=== PATIENT | male | born 1970 | race Caucasian/White ===

== ENCOUNTER → 2020-02-22 16:24 | Outpatient (BNVA) | payer OTHER, SELFPAY | PROVIDERS: Family Provider Nurse Practitioner; PCP Nurse Practitioner; Visit Provider Nurse Practitioner | DX: I10 Essential (primary) hypertension (principal) | CPT/HCPCS: 80053; 80061 ==

== ENCOUNTER → 2020-09-11 09:03 | Outpatient (BNVA) | payer SELFPAY | PROVIDERS: Family Provider Nurse Practitioner; PCP Nurse Practitioner; Visit Provider Nurse Practitioner Family | DX: M25.551 Pain in right hip (principal); M79.651 Pain in right thigh; I10 Essential (primary) hypertension; M79.602 Pain in left arm; R03.0 Elevated blood-pressure reading, without diagnosis of hypertension; R20.2 Paresthesia of skin; E55.9 Vitamin D deficiency, unspecified; M16.11 Unilateral primary osteoarthritis, right hip | CPT/HCPCS: 73502; 80053; 80061; 82306; 84443; 84484; 85025 ==

== ENCOUNTER 2020-10-23 08:08 | Outpatient (CLI) | payer BC, SELFPAY ==
--- NOTE | 2020-10-23 08:24 | ECG_ITS ---
[facility] Test Date: 2020-10-23 Pat Name: Surinder Escalante Department: Room: Gender: Male Mailroom Assistant: Carey Lynn : 1970 Requested By: Lillie West Order Number: [id number] Randi MD: Lillie West M.D. Interpretive Statements NAME OF STUDY: EXERCISE SESTAMIBI STRESS TEST INDICATION: Chest Pain PROCEDURE: The baseline electrocardiogram showed normal sinus rhythm with normal ST-Ts right bundle branch block pattern. At the baseline, the patient's blood pressure was 148/94 mm Hg with a heart rate of 85. The patient exercised for 5 minutes and 40 seconds on a standard Carmelo protocol. Patient attained a maximum heart rate of 149 beats per minute(89% of the maximum predicted heart rate) with a blood pressure at the peak exercise of 225/83 mm Hg. The EKG at the peak exercise revealed no significant changes mainly was complaining of shortness of breath. Patient did not have any chest pain or any significant arrhythmis with the exercise Sestamibi was injected 1 minute prior to the peak exercise During the recovery phase, there were no new changes. Blood pressure at the end of the recovery phase was 165/86 mm Hg with a heart rate of 81 per minute. CONCLUSION: 1. No significant EKG changes with the [treadmill exercise 2. No exercise-induced chest pain or cardiac arrhythmia 3. Impaired exercise tolerance, attained a maximum of 7.0 METs. Hypertensive response to exercise 4. Sestamibi/Sestamibi perfusion results pending; see separate report. Electronically Signed On 10-30-2020 20:07:00 TRAINING DEVELOPMENT SPECIALIST by Lillie West M.D. [id number]
--- NOTE | 2020-10-23 08:25 | NMCV_ITS ---
NM melissa perf SPECT r/s* [id number] Surinder Escalante Age: 50 Gender: M : 1970 Exam Date: 10/23/2020 08:25 Ordering Phys: Lillie West MD ([email or web address]) Technologist: KAYA Bergeron Exam Location: [facility] Indications: CHEST PAIN STRESS TEST Please see separate stress test report in [facility] for full findings IMAGE PROTOCOL Rest/Stress 1 Exercise Day Radiopharmaceutical Dose (mCi) Administration Site Administered by Rest: Tc-99m 11.0 IV KAYA Miller Sestamibi Stress:Tc-99m 33.0 IV KAYA Miller Sestamibi Rest: 23-Oct-2020 60 Discovery 630 Stress: 23-Oct-2020 15 Discovery 630 Radiopharmaceutical was injected at 85 % maximum heart rate. Images obtained in supine and prone position. SPECT RESULTS Technical Quality: Excellent Raw Data Analysis: Normal Image Corrections: No attenuation or motion correction applied Summed Stress Score: 1 Summed Rest Score: 0 Summed Difference Score: 1 PERFUSION FINDINGS He has small area of decreased tracer uptake was noted in the mid and apical inferior wall region. Subtle area of reversibility was noted in the apical region. A subtle area of decreased tracer uptake was noted in the mid anteroseptal region, with some reversibility. With a polar plot no ischemia was noted in the anteroseptal region FUNCTIONAL RESULTS (calculated via Gated SPECT) Stress Image LV EF (%): 72 Stress EDV (mL):115 TID: 0.85 Stress ESV (mL):32 FUNCTIONAL FINDINGS: Segmental wall motion analysis revealing no gross wall motion abnormalities IMPRESSIONS 1. Myocardial perfusion imaging revealing a very small area of reversible defect in the apical inferior and mid anteroseptal regions, suggestive of ischemia in the distribution of the right coronary artery and left anterior descending artery. 2. Normal LV ejection fraction 72%. 3. LV wall motion analysis revealing no gross wall motion normalities. 4. Normal LV volume. In view of the inconsistencies, the reliability of the anteroseptal ischemia is questionable. No similar previous studies are available for comparison; clinical correlation is recommended Dr Lillie West MD [facility] (Electronically Signed) Final Date: 28 October 2020 09:13 S
[2020-10-23 08:27] VITALS: BMI 45.9
--- NOTE | 2020-10-23 09:30 | USCV_ITS ---
Surinder Escalante Age: 50 Gender: M : 1970 Exam Date: 10/23/2020 08:38 Ordering Phys: Lillie West MD ([email or web address]) Technologist: Magalis Jean-Baptiste [place] [facility] [place]: CHEST PAIN BP: 126 / 78 HR: 76 Rhythm: Sinus Technical Quality: Adequate MEASUREMENTS (Male / Female) Normal Values 2D ECHO LV Diastolic Diameter PLAX 4.2 cm 4.2 - 5.9 / 3.9 - 5.3 cm LV Systolic Diameter PLAX 2.9 cm LV Chamber Size 3.9 cm IVS Diastolic Thickness 1.2 cm 0.6 - 1.0 / 0.6 - 0.9 cm IVS Systolic Thickness 1.7 cm LVPW Diastolic Thickness 1.5 cm 0.6 - 1.0 / 0.6 - 0.9 cm LVPW Systolic Thickness 1.8 cm RV Chamber Size 2.9 cm LVOT Diameter 2.0 cm LV Ejection Fraction 2D Teich 57.8 % LV Ejection Fraction MOD 2C 51.4 % LV Ejection Fraction 2C AL 52.9 % LA Diameter 3.9 cm LA Width 2.9 cm LA Height 4.0 cm RA Width 3.0 cm RA Height 4.0 cm Aorta at Sinotubular Diameter 3.1 cm M-MODE LV Diastolic Diameter MM 4.2 cm 4.2 - 5.9 / 3.9 - 5.3 cm LV Systolic Diameter MM 2.4 cm LV Ejection Fraction MM Teich 75.9 % IVS Diastolic Thickness MM 1.3 cm 0.6 - 1.0 / 0.6 - 0.9 cm IVS Systolic Thickness MM 1.7 cm LVPW Diastolic Thickness MM 1.2 cm 0.6 - 1.0 / 0.6 - 0.9 cm LVPW Systolic Thickness MM 1.7 cm Aortic Annulus Diameter 3.5 cm LA Ao Ratio MM 1.3 MV E Point Septal Separation 0.5 cm DOPPLER AV Peak Velocity 124.0 cm/s LVOT Peak Velocity 102.0 cm/s AV Area Cont Eq vti 3.7 cm squared AV Area Cont Eq pk 2.6 cm squared MV Area PHT 5.0 cm squared Mitral E to A Ratio 1.8 MV E' Velocity 49.0 cm/s Mitral E to MV E' Ratio 7.5 Mitral E to LV E' Lateral Ratio 8.2 Mitral E to LV E' Septal Ratio 7.1 TR Peak Velocity 222.0 cm/s TR Peak Gradient 19.7 mmHg TV Peak E Velocity 78.0 cm/s Right Atrial Pressure 3.0 mmHg Pulmonary Artery Systolic Pressu 22.7 mmHg PV Peak Velocity 68.0 cm/s RV Acceleration Time 0.1 s RV Ejection Time 0.3 s RV AcT/ET 0.5 FINDINGS Left Ventricle Normal left ventricular size and systolic function, EF 55 %. No regional wall motion abnormalities. Right Ventricle Normal right ventricular size and systolic function. Right Atrium The right atrium is normal in size. Left Atrium The left atrium is normal in size. Mitral Valve No gross abnormalities noted.mild mitral annular calcification. Aortic Valve No gross abnormalities noted Tricuspid Valve No gross abnormalities noted Pulmonic Valve Pulmonic valve not well visualized. Pericardium Trivial pericardial effusion. Aorta Normal ascending aorta dimension. CONCLUSIONS Normal left ventricular size and systolic function, EF 55 %. No regional wall motion abnormalities. Mild mitral annular calcification. No significant stenotic or regurgitant lesions. Trivial pericardial effusion. There are no intracardiac masses. No previous study is available for comparison. Dr Lillie West MD [facility] (Electronically Signed) Final Date: 28 October 2020 09:34 S
[2020-10-23 09:58] VITALS: PULSE 98
== END 2020-10-23 08:09 | disposition home or self-care (01) ==
LOC: CDL 08:09
PROVIDERS: PCP Nurse Practitioner; Visit Provider Internal Medicine Cardiovascular Disease
DX: R07.89 Other chest pain (principal); R06.02 Shortness of breath
CPT/HCPCS: 78452; 93017; 93306; A9500

== ENCOUNTER → 2021-02-04 16:28 | Outpatient (BNVA) | payer BC, SELFPAY | PROVIDERS: PCP Nurse Practitioner; Visit Provider Nurse Practitioner Family | DX: L02.419 Cutaneous abscess of limb, unspecified (principal) | CPT/HCPCS: 87070; 87077; 87184; 87205 ==

== ENCOUNTER → 2021-04-02 16:31 | Outpatient (BNVA) | payer BC, SELFPAY | PROVIDERS: PCP Nurse Practitioner; Visit Provider Nurse Practitioner | DX: I10 Essential (primary) hypertension (principal); E55.9 Vitamin D deficiency, unspecified; Z12.5 Encounter for screening for malignant neoplasm of prostate; R73.9 Hyperglycemia, unspecified | CPT/HCPCS: 80053; 80061; 81000; 82306; 83036; G0103 ==

== ENCOUNTER → 2021-10-31 08:23 | Outpatient (BNVA) | payer OTHER, SELFPAY | PROVIDERS: PCP Nurse Practitioner; Visit Provider Nurse Practitioner | DX: I10 Essential (primary) hypertension (principal) | CPT/HCPCS: 80053; 80061 ==

== ENCOUNTER → 2022-11-09 08:22 | Outpatient (BNVA) | payer OTHER, SELFPAY | PROVIDERS: PCP Nurse Practitioner; Visit Provider Nurse Practitioner | DX: Z12.5 Encounter for screening for malignant neoplasm of prostate (principal); I10 Essential (primary) hypertension | CPT/HCPCS: 80053; 80061; 82306; G0103 ==

== ENCOUNTER → 2022-11-10 08:24 | Outpatient (BNVA) | payer OTHER, SELFPAY | PROVIDERS: PCP Nurse Practitioner; Visit Provider Nurse Practitioner | DX: R73.9 Hyperglycemia, unspecified (principal) | CPT/HCPCS: 83036 ==

== ENCOUNTER → 2023-06-01 16:44 | Outpatient (BNVA) | payer OTHER, SELFPAY | PROVIDERS: PCP Nurse Practitioner; Visit Provider Nurse Practitioner | DX: I10 Essential (primary) hypertension (principal); R73.9 Hyperglycemia, unspecified; E66.01 Morbid (severe) obesity due to excess calories | CPT/HCPCS: 80053; 80061; 83036 ==

== ENCOUNTER → 2024-04-26 08:33 | Outpatient (BNVA) | payer OTHER, SELFPAY | PROVIDERS: PCP Nurse Practitioner; Visit Provider Nurse Practitioner | DX: E11.65 Type 2 diabetes mellitus with hyperglycemia (principal); I10 Essential (primary) hypertension; Z12.5 Encounter for screening for malignant neoplasm of prostate; E11.9 Type 2 diabetes mellitus without complications | CPT/HCPCS: 80053; 80061; 83036; G0103 ==

== ENCOUNTER → 2024-10-11 08:31 | Outpatient (BNVA) | payer OTHER, SELFPAY | PROVIDERS: PCP Nurse Practitioner; Visit Provider Nurse Practitioner | DX: I10 Essential (primary) hypertension (principal); M79.10 Myalgia, unspecified site; E11.9 Type 2 diabetes mellitus without complications | CPT/HCPCS: 80053; 83036 ==

== ENCOUNTER → 2025-03-16 08:47 | Outpatient (BNVA) | payer OTHER, SELFPAY | PROVIDERS: PCP Family Medicine; Visit Provider Family Medicine | DX: I10 Essential (primary) hypertension (principal); E55.9 Vitamin D deficiency, unspecified; E11.65 Type 2 diabetes mellitus with hyperglycemia | CPT/HCPCS: 80053; 80061; 82306; 83036; 84439; 84443; 85025 ==